=== PATIENT | male | born 1965 | race Two or more races ===

== ENCOUNTER 2019-05-28 19:42 | Emergency (ER) | payer MEDICAID ==
[~2019-05-28] VITALS: Ht 170.2 cm; Wt 92.7 kg
[~2019-05-28 19:42] MED LIST: ALBU18HF INH; ALBU8.5H5 INH; CEFD300C37 PO; DOXY50CA4 PO; LEVO750T26 PO; PANT40TA3 PO; PRED20TA PO; WARF5TAB PO
[2019-05-28] MEDS ORDERED: ALBUTEROL/IPRATROPIUM 2.5MG/0.5MG, 3 ML ONE (20:19)
[2019-05-28] MEDS ORDERED: ALBUTEROL/IPRATROPIUM 2.5MG/0.5MG, 3 ML NPPB ONE (20:30)
--- NOTE | 2019-05-28 20:35 | NUR ---
Pt to room c/o cough and wheezing for a few days. Pt medicated per eMAR and breathing tx started by rn.
[2019-05-28 20:54] LABS: BASOPHILS # (AUTO) 0.06 x10^3/uL (0-0.1); BASOPHILS % (AUTO) 1 % (0-1); EOSINOPHILS # (AUTO) 0.51 x10^3/uL (0-0.4); EOSINOPHILS % (AUTO) 7 % (1-7); LYMPHOCYTES # (AUTO) 2.19 x10^3/uL (1-3.4); LYMPHOCYTES % (AUTO) 31 % (22-44); MD NO; MEAN CORPUSCULAR HEMOGLOBIN 30.1 pg (27.5-34.5); MEAN CORPUSCULAR VOLUME 91.2 fL (81-97); MEAN PLATELET VOLUME 8.1 fL (7.4-10.4); MONOCYTES # (AUTO) 0.53 x10^3/uL (0.2-0.8); MONOCYTES % (AUTO) 8 % (2-9); NEUTROPHILS % (AUTO) 53 % (42-75); PLATELET COUNT 261 x10^3/uL (130-400); RED BLOOD COUNT 5.74 x10^6/uL (4.38-5.82); RED CELL DISTRIBUTION WIDTH 15.7 % (9.4-14.8)
[2019-05-28 21:04] LABS: ALBUMIN 3.8 g/dL (3.4-5.0); ANION GAP 5 mmol/L (5-15); CALCIUM 9.3 mg/dL (8.5-10.1); CHLORIDE 107 mmol/L (98-107); CREATININE 0.93 mg/dL (0.7-1.3)
[2019-05-28 21:08] VITALS: BP 158/83
== END 2019-05-28 21:33 | disposition home or self-care (01) ==
LOC: ED 21:05
DX: J45.21 Mild intermittent asthma with (acute) exacerbation (principal); J20.8 Acute bronchitis due to other specified organisms; B97.89 Other viral agents as the cause of diseases classified elsewhere; R07.89 Other chest pain; Z86.718 Personal history of other venous thrombosis and embolism
CPT/HCPCS: 36415; 71045; 80048; 82040; 85025; 93005; 99285; J7512

== ENCOUNTER 2019-07-10 15:45 | Emergency (ER) | payer MEDICAID ==
[~2019-07-10] VITALS: Ht 170.2 cm; Wt 92.8 kg
--- NOTE | 2019-07-10 16:14 | NUR ---
THIS IS A 54 YO MALE WHO PRESENTS TO THE ER C/O SHARP RIGHT SIDED CHEST PAIN X 1 MONTH, WORSE OVER THE LAST WEEK. PT ABLE TO SPEAK IN FULL 7-10 WORD SENTENCES W/O DIFFICULTY. PT AO X 4. SKIN PWD. RESP EVEN AND UNLABORED. CALL LIGHT WITHIN REACH. WILL CONT TO MONITOR PT.
[2019-07-10 17:14] LABS: BASOPHILS # (AUTO) 0.01 x10^3/uL (0-0.1); BASOPHILS % (AUTO) 0 % (0-1); EOSINOPHILS % (AUTO) 4 % (1-7); LYMPHOCYTES # (AUTO) 1.67 x10^3/uL (1-3.4); LYMPHOCYTES % (AUTO) 22 % (22-44); MD NO; MEAN CORPUSCULAR HEMOGLOBIN 30.3 pg (27.5-34.5); MEAN CORPUSCULAR HGB CONC 32.9 g/dL (33.2-36.2); MEAN PLATELET VOLUME 8.3 fL (7.4-10.4); MONOCYTES # (AUTO) 0.54 x10^3/uL (0.2-0.8); MONOCYTES % (AUTO) 7 % (2-9); NEUTROPHILS # (AUTO) 5.01 x10^3/uL (1.8-6.8); NEUTROPHILS % (AUTO) 67 % (42-75); PLATELET COUNT 252 x10^3/uL (130-400); RED BLOOD COUNT 5.09 x10^6/uL (4.38-5.82)
[2019-07-10 17:22] LABS: ALBUMIN 3.5 g/dL (3.4-5.0); ANION GAP 5 mmol/L (5-15); CALCIUM 8.7 mg/dL (8.5-10.1); CHLORIDE 106 mmol/L (98-107); CREATININE 1.12 mg/dL (0.7-1.3)
[2019-07-10 17:25] LABS: TROPONIN I < 0.015 ng/mL (0.000-0.045)
--- NOTE | 2019-07-10 17:30 | NUR ---
PT CURRENTLY RESTING ON GURNEY. NAD NOTED. SKIN WARM AND DRY. RESP EVEN AND UNLABORED. PT ABLE TO SPEAK IN FULL 7-10 WORD SENTENCES W/O DIFFICULTY. NO COUGH NOTED. PT CURRENTLY DENIES PAIN. PT ON CONT BP, CARDIAC AND O2 MONITORS. PT AWARE WE ARE WAITING FOR LAB/IMAGING RESULTS. CALL LIGHT WITHIN REACH. WILL CONT TO MONITOR PT.
[2019-07-10 17:57] VITALS: BP 166/95
[2019-07-10] MEDS ORDERED: SODIUM CHLORIDE FLUSH 10ML SYR IVF ONE (18:00)
== END 2019-07-10 18:09 | disposition home or self-care (01) ==
LOC: ED 17:54
DX: M94.0 Chondrocostal junction syndrome [Tietze] (principal); R07.89 Other chest pain; R05 Cough; I10 Essential (primary) hypertension; R94.31 Abnormal electrocardiogram [ECG] [EKG]; J45.909 Unspecified asthma, uncomplicated; Z86.718 Personal history of other venous thrombosis and embolism
CPT/HCPCS: 36415; 71045; 80048; 82040; 83605; 84484; 85025; 87040; 93005; 99285

== ENCOUNTER 2019-07-19 15:18 | Emergency (ER) | payer MEDICAID ==
[~2019-07-19] VITALS: Ht 170.2 cm; Wt 91.2 kg
[~2019-07-19 15:18] MED LIST changes: -WARF5TAB PO; +WARF5TAB2 PO
--- NOTE | 2019-07-19 16:06 | NUR ---
PAN SHOVER: PT AMBULATORY WITH STEADY GAIT TO ROOM FROM LOBBY AT THIS TIME.
--- NOTE | 2019-07-19 16:15 | NUR ---
PT C/O RT BACK PAIN RADIATING TO RT LOWER RIB; WORSE IN LAST 3 DAYS. ABLE TO SPEAK IN COMPLETE SENTENCES. INSP WHEEZES NOTED. ADMITS TO METH USE, PAIN WORSENS W/ METH USE. NO RASH NOTED ON TORSO. MULTIPLE SCARS AND SCABBED AREAS TO ARMS BILAT.
[2019-07-19] MEDS ORDERED: OMEP40CA42 PO (16:24)
[2019-07-19] MEDS ORDERED: CYCLOBENZAPRINE 10 MG TABLET PO ONE (17:17)
[2019-07-19 17:20] LABS: BASOPHILS # (AUTO) 0.06 x10^3/uL (0-0.1); BASOPHILS % (AUTO) 1 % (0-1); EOSINOPHILS # (AUTO) 0.49 x10^3/uL (0-0.4); EOSINOPHILS % (AUTO) 7 % (1-7); LYMPHOCYTES # (AUTO) 1.72 x10^3/uL (1-3.4); LYMPHOCYTES % (AUTO) 23 % (22-44); MD NO; MEAN CORPUSCULAR HEMOGLOBIN 30.4 pg (27.5-34.5); MEAN CORPUSCULAR HGB CONC 33.4 g/dL (33.2-36.2); MEAN PLATELET VOLUME 8.4 fL (7.4-10.4); MONOCYTES % (AUTO) 9 % (2-9); NEUTROPHILS # (AUTO) 4.59 x10^3/uL (1.8-6.8); NEUTROPHILS % (AUTO) 61 % (42-75); PLATELET COUNT 237 x10^3/uL (130-400); RED BLOOD COUNT 5.29 x10^6/uL (4.38-5.82); RED CELL DISTRIBUTION WIDTH 16.3 % (9.4-14.8)
[2019-07-19 17:29] LABS: ALBUMIN 3.5 g/dL (3.4-5.0); ANION GAP 7 mmol/L (5-15); CALCIUM 8.9 mg/dL (8.5-10.1); CHLORIDE 109 mmol/L (98-107)
[2019-07-19 17:32] LABS: ALANINE AMINOTRANSFERASE 23 U/L (12-78); ALKALINE PHOSPHATASE 73 U/L (45-117); BILIRUBIN,TOTAL 0.4 mg/dL (0.2-1.0); CREATININE 1.05 mg/dL (0.7-1.3); TOTAL PROTEIN 7.7 g/dL (6.4-8.2)
[2019-07-19] MEDS ORDERED: CYCLOBENZAPRINE 10 MG TABLET ONE (17:51)
--- NOTE | 2019-07-19 17:55 | NUR ---
FLEXERIL GIVEN PER EMAR
--- NOTE | 2019-07-19 18:14 | NUR ---
IV ASSISTANCE REQUESTED FOR U/S OR EJ IV.
[2019-07-19] MEDS ORDERED: OMNIPAQUE 350 MG/ML, 100ML BOTTLE ONE (19:05)
--- NOTE | 2019-07-19 19:06 | NUR ---
PT REPORT TO MICHEL COLLADO. PT CARE TRANSFERRED.
[2019-07-19 19:14] VITALS: BP 122/73
== END 2019-07-19 19:51 ==
LOC: ED 19:50
DX: R07.89 Other chest pain (principal); F15.20 Other stimulant dependence, uncomplicated; R10.11 Right upper quadrant pain; R00.0 Tachycardia, unspecified; R06.02 Shortness of breath; I10 Essential (primary) hypertension; J45.909 Unspecified asthma, uncomplicated
CPT/HCPCS: 36415; 71045; 71275; 80053; 83690; 85025; 85379; 93005; 99285; Q9967

== ENCOUNTER 2020-01-22 16:25 | Emergency (ER) | payer MEDICAID ==
[~2020-01-22] VITALS: Ht 170.2 cm; Wt 89.1 kg
[~2020-01-22 16:25] MED LIST changes: +OMEP40CA42 PO
[2020-01-22 16:32] VITALS: BP 139/88
== END 2020-01-22 17:41 | disposition home or self-care (01) ==
LOC: ED 16:56
DX: R05 Cough (principal); R50.9 Fever, unspecified; I10 Essential (primary) hypertension; J45.909 Unspecified asthma, uncomplicated; Z86.718 Personal history of other venous thrombosis and embolism
CPT/HCPCS: 71045; 93005; 99283

== ENCOUNTER 2020-03-15 17:32 | Emergency (ER) | payer MEDICAID ==
[~2020-03-15] VITALS: Ht 170.2 cm; Wt 90.7 kg
[2020-03-15] MEDS ORDERED: ALBUTEROL/IPRATROPIUM 2.5MG/0.5MG, 3 ML ONE (18:20)
--- NOTE | 2020-03-15 18:23 | NUR ---
PT STATES COUGH FOR A MONTH AND FEELS WHEEZY. BREATHING TX GIVEN AND MEDICATED NOTED ON APR. LAB AT BEDSIDE DRAWING BLOOD
[2020-03-15] MEDS ORDERED: ALBUTEROL/IPRATROPIUM 2.5MG/0.5MG, 3 ML NEB ONE (18:30)
--- NOTE | 2020-03-15 19:04 | NUR ---
REPORT RECEIVED FROM ULISES PEARSON
[2020-03-15 19:14] LABS: ANION GAP 5 mmol/L (5-15); CALCIUM 8.9 mg/dL (8.5-10.1); CHLORIDE 109 mmol/L (98-107); CREATININE 1.06 mg/dL (0.7-1.3)
[2020-03-15 19:18] LABS: TROPONIN I < 0.015 ng/mL (0.000-0.045)
[2020-03-15 19:22] LABS: BASOPHILS % (AUTO) 1 % (0-1); EOSINOPHILS % (AUTO) 9 % (1-7); LYMPHOCYTES % (AUTO) 28 % (22-44); MEAN CORPUSCULAR HEMOGLOBIN 31.5 pg (27.5-34.5); MEAN CORPUSCULAR HGB CONC 34.1 g/dL (33.2-36.2); MEAN PLATELET VOLUME 8.2 fL (7.4-10.4); MONOCYTES % (AUTO) 9 % (2-9); NEUTROPHILS % (AUTO) 53 % (42-75); PLATELET COUNT 231 x10^3/uL (130-400); RED BLOOD COUNT 5.48 x10^6/uL (4.38-5.82); RED CELL DISTRIBUTION WIDTH 15.3 % (9.4-14.8)
[2020-03-15 19:23] VITALS: BP 152/96
[2020-03-15 19:23] LABS: MD NO
== END 2020-03-15 20:28 | disposition home or self-care (01) ==
LOC: ED 20:25
DX: J45.41 Moderate persistent asthma with (acute) exacerbation (principal); F15.10 Other stimulant abuse, uncomplicated; R05 Cough; R06.02 Shortness of breath; M54.5 Low back pain; R00.0 Tachycardia, unspecified; I10 Essential (primary) hypertension; Z86.718 Personal history of other venous thrombosis and embolism
CPT/HCPCS: 36415; 71045; 80048; 82040; 84484; 85025; 93005; 94640; 99285; J7512

== ENCOUNTER 2020-04-17 20:06 | Emergency (ER) | payer MEDICAID ==
[~2020-04-17] VITALS: Ht 170.2 cm; Wt 87.5 kg
[2020-04-17 20:10] VITALS: BP 167/90
--- NOTE | 2020-04-17 21:10 | NUR ---
PT C/O BRONCHITIS [id number]. STATES HE FEELS LIKE IT IS GETTING WORSE, COUGHING UP WHITE PHLEGM. PAIN IN LEFT BACK WITH COUGHING AND DEEP BREATHING MILD WOB NOTED; HOWEVER- POX 97% DENIES FEVER/CHILLS, N/V
[2020-04-17] MEDS ORDERED: ALBUTEROL SULFATE 2.5 MG/3 ML NPPB ONE (21:30)
[2020-04-17] MEDS ORDERED: ALBUTEROL SULFATE 2.5 MG/3 ML ONE (21:48)
[2020-04-17 21:52] LABS: BASOPHILS % (AUTO) 2 % (0-1); EOSINOPHILS % (AUTO) 7 % (1-7); LYMPHOCYTES % (AUTO) 27 % (22-44); MEAN CORPUSCULAR HEMOGLOBIN 31.6 pg (27.5-34.5); MEAN CORPUSCULAR HGB CONC 34.4 g/dL (33.2-36.2); MEAN PLATELET VOLUME 7.8 fL (7.4-10.4); MONOCYTES % (AUTO) 10 % (2-9); NEUTROPHILS % (AUTO) 55 % (42-75); PLATELET COUNT 258 x10^3/uL (130-400); RED CELL DISTRIBUTION WIDTH 15.7 % (9.4-14.8)
[2020-04-17 21:54] LABS: MD NO
--- NOTE | 2020-04-17 22:02 | NUR ---
REPORT TO CAROLINE PEARSON [facility] COMPLETE
--- NOTE | 2020-04-17 22:04 | NUR ---
Report received from MICHEL Gates. This RN to assume care.
[2020-04-17 22:05] LABS: ALBUMIN 3.7 g/dL (3.4-5.0); ANION GAP 7 mmol/L (5-15); CALCIUM 8.8 mg/dL (8.5-10.1); CHLORIDE 108 mmol/L (98-107)
[2020-04-17 22:10] LABS: CREATININE 0.86 mg/dL (0.7-1.3); TROPONIN I < 0.015 ng/mL (0.000-0.045)
--- NOTE | 2020-04-17 22:43 | NUR ---
f/u and d/c instructions given to pt and he v/u. no respiratory distress at this time. pt ambulatory and d/c without incident.
== END 2020-04-17 22:59 | disposition home or self-care (01) ==
LOC: ED 22:10
DX: J44.1 Chronic obstructive pulmonary disease with (acute) exacerbation (principal); R06.00 Dyspnea, unspecified; I10 Essential (primary) hypertension; R05 Cough; R94.31 Abnormal electrocardiogram [ECG] [EKG]; R06.02 Shortness of breath; F15.10 Other stimulant abuse, uncomplicated; Z87.891 Personal history of nicotine dependence; Z86.718 Personal history of other venous thrombosis and embolism
CPT/HCPCS: 36415; 71045; 80048; 82040; 84484; 85025; 93005; 94640; 99285; J7512; J7613

== ENCOUNTER 2020-07-14 15:48 | Emergency (ER) | payer MEDICAID ==
[~2020-07-14] VITALS: Ht 170.2 cm; Wt 89.3 kg
--- NOTE | 2020-07-14 16:12 | NUR ---
CC OF WHEEZING AND COUGH. STATES HE FINISHED ANTIBIOTICS AND WAS FEELING BETTER BUT NOW FEELING WORSE AGAIN.
[2020-07-14] MEDS ORDERED: DEXAMETHASONE 4 MG TABLET ONE (16:29)
[2020-07-14] MEDS ORDERED: DEXAMETHASONE 4 MG/ML, 1ML PO ONE (16:30)
[2020-07-14] MEDS ORDERED: ALBUTEROL/IPRATROPIUM 2.5MG/0.5MG, 3 ML ONE (16:30)
[2020-07-14] MEDS ORDERED: ALBUTEROL/IPRATROPIUM 2.5MG/0.5MG, 3 ML NPPB ONE (16:30)
--- NOTE | 2020-07-14 16:42 | NUR ---
pt medicated per apr. TOLERATING BREATHING TX WELL
[2020-07-14 16:58] VITALS: BP 167/93
== END 2020-07-14 17:09 | disposition home or self-care (01) ==
LOC: ED 17:00
DX: J45.31 Mild persistent asthma with (acute) exacerbation (principal); B34.9 Viral infection, unspecified; F15.122 Other stimulant abuse with intoxication with perceptual disturbance; F17.210 Nicotine dependence, cigarettes, uncomplicated; I10 Essential (primary) hypertension; J44.9 Chronic obstructive pulmonary disease, unspecified; Z86.718 Personal history of other venous thrombosis and embolism
CPT/HCPCS: 71045; 94640; 99283; 99406; J1100

== ENCOUNTER 2020-09-09 18:58 | Emergency (ER) | payer MEDICAID ==
[~2020-09-09] VITALS: Ht 170.2 cm; Wt 89.4 kg
[~2020-09-09 18:58] MED LIST changes: +DOXY50CA35 PO; -DOXY50CA4 PO; -OMEP40CA42 PO; +OMEP40CA8 PO
--- NOTE | 2020-09-09 19:26 | NUR ---
plant accountant note: Pt to room from lobby.
[2020-09-09] MEDS ORDERED: ALBUTEROL/IPRATROPIUM 2.5MG/0.5MG, 3 ML NPPB ONE (20:00)
[2020-09-09] MEDS ORDERED: ALBUTEROL/IPRATROPIUM 2.5MG/0.5MG, 3 ML ONE (20:24)
--- NOTE | 2020-09-09 20:29 | NUR ---
PT MEDICATED PER APR, NAD, NO CHANGE IN CONDITION AT THIS TIME, WCTM. Patient is resting comfortably in bed. Bed in lowest, rails engaged, call light on lap.
[2020-09-09 21:15] LABS: BASOPHILS % (AUTO) 2 % (0-1); EOSINOPHILS % (AUTO) 9 % (1-7); LYMPHOCYTES % (AUTO) 37 % (22-44); MEAN CORPUSCULAR HEMOGLOBIN 31.7 pg (27.5-34.5); MEAN CORPUSCULAR HGB CONC 33.8 g/dL (33.2-36.2); MEAN PLATELET VOLUME 7.9 fL (7.4-10.4); MONOCYTES % (AUTO) 8 % (2-9); NEUTROPHILS % (AUTO) 45 % (42-75); PLATELET COUNT 256 x10^3/uL (130-400); RED BLOOD COUNT 5.53 x10^6/uL (4.38-5.82)
[2020-09-09 21:23] LABS: ALBUMIN 3.7 g/dL (3.4-5.0); ANION GAP 4 mmol/L (5-15); CALCIUM 8.5 mg/dL (8.5-10.1); CHLORIDE 109 mmol/L (98-107)
--- NOTE | 2020-09-09 21:41 | NUR ---
PT RESTING ON GURNEY, NAD, APPEARS COMFORTABLE, NO CHANGE IN CONDITION AT THIS TIME. BED IN LOWEST, RAILS ENGAGED, CALL LIGHT ON LAP, DHIRAJ.
[2020-09-09 22:15] VITALS: BP 174/98
== END 2020-09-09 23:02 | disposition home or self-care (01) ==
LOC: ED 21:25
DX: J44.1 Chronic obstructive pulmonary disease with (acute) exacerbation (principal); R06.00 Dyspnea, unspecified; I10 Essential (primary) hypertension; Z86.718 Personal history of other venous thrombosis and embolism
CPT/HCPCS: 36415; 71045; 80048; 82040; 84145; 85025; 94640; 99284; J7512

== ENCOUNTER 2020-11-02 20:46 | Inpatient (IN) | payer MEDICAID ==
[~2020-11-02] VITALS: Ht 170.2 cm; Wt 90.6 kg
[2020-11-02] MEDS ORDERED: ACETAMINOPHEN 500 MG TABLET ONE (21:27)
[2020-11-02] MEDS ORDERED: ALBUTEROL/IPRATROPIUM 2.5MG/0.5MG, 3 ML ONE (21:28)
[2020-11-02 21:30] VITALS: BP 117/67
[2020-11-02] MEDS ORDERED: ALBUTEROL/IPRATROPIUM 2.5MG/0.5MG, 3 ML NPPB ONE (21:30)
[2020-11-02] MEDS ORDERED: ACETAMINOPHEN 500 MG TABLET PO ONE (21:30)
[2020-11-02 21:57] LABS: BASOPHILS % (AUTO) 0 % (0-1); EOSINOPHILS % (AUTO) 0 % (1-7); LYMPHOCYTES % (AUTO) 13 % (22-44); MEAN CORPUSCULAR HEMOGLOBIN 31.1 pg (27.5-34.5); MEAN CORPUSCULAR HGB CONC 33.9 g/dL (33.2-36.2); MEAN PLATELET VOLUME 8.3 fL (7.4-10.4); MONOCYTES % (AUTO) 13 % (2-9); NEUTROPHILS % (AUTO) 74 % (42-75); PLATELET COUNT 180 x10^3/uL (130-400)
[2020-11-02 22:01] LABS: ALBUMIN 2.9 g/dL (3.4-5.0); ANION GAP 9 mmol/L (5-15); CALCIUM 7.5 mg/dL (8.5-10.1); CHLORIDE 99 mmol/L (98-107); CREATININE 0.94 mg/dL (0.7-1.3)
[2020-11-02] MEDS ORDERED: AZITHROMYCIN 500 MG in SODIUM CHLORIDE 0.9% 250 ML IV ONE (22:30)
[2020-11-02 22:38] LABS: RAPID INFLUENZA A Negative (Negative); RAPID INFLUENZA B Negative (Negative)
[2020-11-03 01:09] VITALS: BP 120/72
[2020-11-03] MEDS ORDERED: LABETALOL 5MG/ML, 20ML IVPush PRN (03:30)
[2020-11-03] MEDS ORDERED: ONDANSETRON 2MG/ML, 2ML IVPush PRN (03:30)
[2020-11-03] MEDS ORDERED: PHARMACY MAY ADJ FOR RENAL FX MC PRN (03:30)
[2020-11-03] MEDS ORDERED: HYDROcodone/APAP 5/325 TABLET PO PRN (03:30)
[2020-11-03] MEDS ORDERED: ACETAMINOPHEN 325 MG TABLET PO PRN (03:30)
[2020-11-03] MEDS: CEFTRIAXONE 1,000 MG in DEXTROSE 5% 50 ML IVPB SCH (04:04)
[2020-11-03] MEDS: ENOXAPARIN 80 MG/0.8 ML SQ SCH ×2 (04:04→17:23)
[2020-11-03 04:13] VITALS: BP 117/67
[2020-11-03 07:24] LABS: BASOPHILS % (AUTO) 0 % (0-1); EOSINOPHILS % (AUTO) 0 % (1-7); LYMPHOCYTES % (AUTO) 11 % (22-44); MEAN CORPUSCULAR HEMOGLOBIN 31.1 pg (27.5-34.5); MEAN CORPUSCULAR HGB CONC 33.6 g/dL (33.2-36.2); MEAN PLATELET VOLUME 8.6 fL (7.4-10.4); MONOCYTES % (AUTO) 6 % (2-9); NEUTROPHILS % (AUTO) 84 % (42-75); PLATELET COUNT 174 x10^3/uL (130-400); RED BLOOD COUNT 5.58 x10^6/uL (4.38-5.82); RED CELL DISTRIBUTION WIDTH 16.3 % (9.4-14.8)
[2020-11-03 07:31] LABS: D-DIMER 1.39 ug/mlFEU (0.00-0.52)
[2020-11-03 07:33] VITALS: BP 122/75
[2020-11-03 07:36] LABS: C-REACTIVE PROTEIN, QUANT 1.9 mg/dL (0.02-0.49)
[2020-11-03 07:56] LABS: HCT (SEDRATE) 51.6 % (39.2-51.8)
[2020-11-03] MEDS: ALBUTEROL HFA 90 MCG/SPRAY INH PRN (10:50)
[2020-11-03] MEDS: ASCORBIC ACID 500 MG TABLET PO SCH ×2 (10:51→21:07)
[2020-11-03] MEDS: ZINC SULFATE 220 MG CAPSULE PO SCH (10:51)
[2020-11-03] MEDS: FLUTICASONE/VILANTEROL 100-25MCG/INH INH SCH (10:51)
[2020-11-03] MEDS: GUAIFENESIN/DM 200-20MG, 10ML UDC PO PRN (11:06)
[2020-11-03 14:27] VITALS: BP 133/77
[2020-11-03 20:18] VITALS: BP 137/65
[2020-11-03] MEDS: AZITHROMYCIN 500 MG in SODIUM CHLORIDE 0.9% 250 ML IV SCH (23:29)
[2020-11-04] MEDS: ALBUTEROL HFA 90 MCG/SPRAY INH PRN ×2 (01:16→10:33)
[2020-11-04 01:23] VITALS: BP 117/75
[2020-11-04] MEDS: ENOXAPARIN 80 MG/0.8 ML SQ SCH ×2 (04:34→17:55)
[2020-11-04] MEDS: CEFTRIAXONE 1,000 MG in DEXTROSE 5% 50 ML IVPB SCH (04:34)
[2020-11-04 06:15] LABS: HCT (SEDRATE) 50.8 % (39.2-51.8)
[2020-11-04 06:31] LABS: CHLORIDE 101 mmol/L (98-107)
[2020-11-04 06:48] LABS: ALANINE AMINOTRANSFERASE 42 U/L (12-78); ALBUMIN 2.5 g/dL (3.4-5.0); ALKALINE PHOSPHATASE 56 U/L (45-117); ANION GAP 5 mmol/L (5-15); BILIRUBIN,TOTAL 0.3 mg/dL (0.2-1.0); CALCIUM 7.7 mg/dL (8.5-10.1); CREATININE 0.86 mg/dL (0.7-1.3); TOTAL PROTEIN 6.8 g/dL (6.4-8.2)
[2020-11-04 07:51] VITALS: BP 120/70
[2020-11-04] MEDS: FLUTICASONE/VILANTEROL 100-25MCG/INH INH SCH (10:35)
[2020-11-04] MEDS: ASCORBIC ACID 500 MG TABLET PO SCH ×2 (10:37→20:13)
[2020-11-04] MEDS: ZINC SULFATE 220 MG CAPSULE PO SCH (10:37)
[2020-11-04] MEDS: GUAIFENESIN/DM 200-20MG, 10ML UDC PO PRN ×2 (10:37→17:55)
[2020-11-04] MEDS: methylPREDNISolone SOD SUCC 125 MG/2 ML IV SCH ×2 (10:37→21:59)
[2020-11-04 12:32] VITALS: BP 126/71
[2020-11-04] MEDS: CHOLECALCIFEROL 5,000u TAB PO SCH (17:55)
[2020-11-04 19:42] VITALS: BP 121/74
[2020-11-04] MEDS: AZITHROMYCIN 500 MG in SODIUM CHLORIDE 0.9% 250 ML IV SCH (23:35)
[2020-11-05 01:06] VITALS: BP 116/74
[2020-11-05] MEDS: methylPREDNISolone SOD SUCC 125 MG/2 ML IV SCH ×3 (04:21→16:10)
[2020-11-05] MEDS: ENOXAPARIN 80 MG/0.8 ML SQ SCH ×2 (04:22→16:11)
[2020-11-05] MEDS: CEFTRIAXONE 1,000 MG in DEXTROSE 5% 50 ML IVPB SCH (04:22)
[2020-11-05] MEDS ORDERED: FAMOTIDINE 20 MG TABLET PO SCH (05:04)
[2020-11-05 08:14] VITALS: BP 134/74
[2020-11-05] MEDS: ASCORBIC ACID 500 MG TABLET PO SCH (08:46)
[2020-11-05] MEDS: FLUTICASONE/VILANTEROL 100-25MCG/INH INH SCH (08:46)
[2020-11-05] MEDS: ZINC SULFATE 220 MG CAPSULE PO SCH (08:47)
[2020-11-05] MEDS: CHOLECALCIFEROL 5,000u TAB PO SCH (08:47)
[2020-11-05 09:10] LABS: BASOPHILS % (AUTO) 0 % (0-1); EOSINOPHILS % (AUTO) 0 % (1-7); LYMPHOCYTES % (AUTO) 6 % (22-44); MEAN CORPUSCULAR HEMOGLOBIN 30.9 pg (27.5-34.5); MEAN CORPUSCULAR HGB CONC 33.2 g/dL (33.2-36.2); MONOCYTES % (AUTO) 4 % (2-9); NEUTROPHILS % (AUTO) 90 % (42-75); PLATELET COUNT 150 x10^3/uL (130-400); RED BLOOD COUNT 5.81 x10^6/uL (4.38-5.82); RED CELL DISTRIBUTION WIDTH 15.9 % (9.4-14.8)
[2020-11-05 09:21] LABS: ALBUMIN 2.7 g/dL (3.4-5.0); ANION GAP 7 mmol/L (5-15); CALCIUM 8.2 mg/dL (8.5-10.1); CHLORIDE 104 mmol/L (98-107)
[2020-11-05 09:27] LABS: D-DIMER 2.19 ug/mlFEU (0.00-0.52)
[2020-11-05 09:28] LABS: CREATININE 0.76 mg/dL (0.7-1.3)
[2020-11-05] MEDS ORDERED: FLUT1AER INH (11:28)
[2020-11-05] MEDS ORDERED: CEFD300C37 PO (11:28)
[2020-11-05] MEDS ORDERED: DEXA6TAB6 PO (11:28)
[2020-11-05] MEDS ORDERED: ZINC220C8 PO (11:28)
[2020-11-05] MEDS ORDERED: AZIT500T PO (11:28)
[2020-11-05] MEDS ORDERED: ASCO500T9 PO (11:28)
[2020-11-05 11:34] VITALS: BP 122/78
[2020-11-05 12:20] VITALS: BP 122/78
== END 2020-11-05 20:00 | disposition home or self-care (01) | DRG 177 ==
LOC: ED 21:00 → EDIP 22:20 → 3N 23:29
PROVIDERS: ADMIT Internal Medicine; ATTEND Internal Medicine
DX: U07.1 COVID-19 (principal); J12.82 Pneumonia due to coronavirus disease 2019; J96.01 Acute respiratory failure with hypoxia; J45.901 Unspecified asthma with (acute) exacerbation; J44.0 Chronic obstructive pulmonary disease with (acute) lower respiratory infection; F15.90 Other stimulant use, unspecified, uncomplicated; I10 Essential (primary) hypertension; Z86.711 Personal history of pulmonary embolism; Z79.899 Other long term (current) drug therapy
CPT/HCPCS: 36415; 71045; 71250; 80048; 80053; 80069; 82040; 82728; 83036; 83735; 84100; 84145; 85025; 85379; 85384; 85651; 85730; 86140; 87040; 87400; 93005; 99285; G0378; J0456; J0696; J1650; J2405; U0005; J2930; J7050; J7512; U0003

== ENCOUNTER 2020-11-21 15:34 | Emergency (ER) | payer MEDICAID ==
[~2020-11-21] VITALS: Ht 170.2 cm; Wt 91.9 kg
[~2020-11-21 15:34] MED LIST changes: +ASCO500T9 PO; +AZIT500T PO; +DEXA6TAB6 PO; +FLUT1AER INH; +ZINC220C8 PO
[2020-11-21 16:36] LABS: BASOPHILS % (AUTO) 1 % (0-1); EOSINOPHILS % (AUTO) 1 % (1-7); LYMPHOCYTES % (AUTO) 16 % (22-44); MEAN CORPUSCULAR HEMOGLOBIN 31.1 pg (27.5-34.5); MEAN CORPUSCULAR HGB CONC 33.8 g/dL (33.2-36.2); MEAN PLATELET VOLUME 7.7 fL (7.4-10.4); MONOCYTES % (AUTO) 11 % (2-9); NEUTROPHILS % (AUTO) 71 % (42-75); PLATELET COUNT 269 x10^3/uL (130-400); RED BLOOD COUNT 5.43 x10^6/uL (4.38-5.82); RED CELL DISTRIBUTION WIDTH 17.2 % (9.4-14.8)
[2020-11-21 16:39] LABS: ALANINE AMINOTRANSFERASE 74 U/L (12-78); ALBUMIN 2.6 g/dL (3.4-5.0); ANION GAP 7 mmol/L (5-15); C-REACTIVE PROTEIN, QUANT 0.93 mg/dL (0.02-0.49); CALCIUM 8.3 mg/dL (8.5-10.1); CHLORIDE 107 mmol/L (98-107); CREATININE 0.85 mg/dL (0.7-1.3)
[2020-11-21 16:43] LABS: D-DIMER (DIC) 2.23 ug/mlFEU (0.00-0.52); PROTIME 9.9 Seconds (9.6-11.5)
[2020-11-21 16:44] LABS: ALKALINE PHOSPHATASE 70 U/L (45-117); BILIRUBIN,TOTAL 0.4 mg/dL (0.2-1.0); TOTAL PROTEIN 6.8 g/dL (6.4-8.2); TROPONIN I < 0.015 ng/mL (0.000-0.045)
--- NOTE | 2020-11-21 20:34 | NUR ---
RAMANA RN AT BEDSIDE FOR US IV ACCESS
--- NOTE | 2020-11-21 21:29 | NUR ---
UPRIGHT IN GURNEY. A&O X4, AWAKE/ALERT. DENIES NEEDS. PT UPDATED TO POC (CT IMAGING/RECHECK/DISPO) AND DEMONSTRATES UNDERSTANDING. BP/SPO2/ECG MONITORING IN PLACE. SINUS TACH ON MONITOR. SPO2 >90% ON 2L O2 BY NC.
[2020-11-21] MEDS ORDERED: OMNIPAQUE 350 MG/ML, 75ML BOTTLE ONE (21:50)
[2020-11-21] MEDS ORDERED: RIVAROXABAN 15 MG TABLET PO SCH (23:30)
[2020-11-21 23:32] VITALS: BP 127/76
--- NOTE | 2020-11-22 | NUR ---
DC EDUCATION PROVIDED, PT DEMONSTRATES UNDERSTANDING. PT PROVIDED VOUCHER FOR SAFE TRANSPORT. PT HAS O2 AT HOME FOR SUPPORT. PROVIDED XARELTO COUPON FOR ASSISTANCE IN OBTAINING RX
[2020-12-12] MEDS ORDERED: RIVAROXABAN 20 MG TABLET PO SCH (17:00)
== END 2020-11-22 00:41 | disposition home or self-care (01) ==
LOC: ED 16:00
DX: I26.99 Other pulmonary embolism without acute cor pulmonale (principal); R07.89 Other chest pain; R00.0 Tachycardia, unspecified; R53.1 Weakness; I10 Essential (primary) hypertension
CPT/HCPCS: 36415; 71045; 71275; 80053; 82728; 83605; 83615; 84145; 84484; 85025; 85049; 85379; 85384; 85610; 85730; 86140; 87040; 93005; 93970; 99285; Q9967

== ENCOUNTER 2020-11-24 14:41 | Emergency (ER) | payer MEDICAID ==
[~2020-11-24] VITALS: Ht 170.2 cm; Wt 91.4 kg
[2020-11-24 16:19] LABS: BASOPHILS % (AUTO) 1 % (0-1); EOSINOPHILS % (AUTO) 2 % (1-7); LYMPHOCYTES % (AUTO) 22 % (22-44); MEAN CORPUSCULAR HGB CONC 33.6 g/dL (33.2-36.2); MEAN PLATELET VOLUME 7.5 fL (7.4-10.4); MONOCYTES % (AUTO) 10 % (2-9); NEUTROPHILS % (AUTO) 65 % (42-75); PLATELET COUNT 222 x10^3/uL (130-400); RED BLOOD COUNT 5.08 x10^6/uL (4.38-5.82)
[2020-11-24 16:27] LABS: ALANINE AMINOTRANSFERASE 49 U/L (12-78); ALBUMIN 2.9 g/dL (3.4-5.0); ANION GAP 3 mmol/L (5-15); CALCIUM 8.1 mg/dL (8.5-10.1); CHLORIDE 112 mmol/L (98-107)
[2020-11-24 16:29] LABS: ALKALINE PHOSPHATASE 72 U/L (45-117); BILIRUBIN,TOTAL 0.3 mg/dL (0.2-1.0); CREATININE 0.73 mg/dL (0.7-1.3); TOTAL PROTEIN 7.2 g/dL (6.4-8.2)
--- NOTE | 2020-11-24 18:51 | NUR ---
PT TO ROOM FROM LOBBY
--- NOTE | 2020-11-24 19:01 | NUR ---
PT IN NO DISTRESS. SAYS HE COVID POSITIVE X3 WEEKS AGO. WAS TOLD HE HAD BLOOD CLOT IN LUNG AND HAS BEEN ON XARELTO SINCE BEING DIAGNOSED. SAYS HE HAS BLOWING HIS NOSE AND HAVING BLOOD IN HIS SECRETIONS/PLEGHM. ALSO C/O PAIN WHEN TAKING A DEEP BREATH. A&OX4, GCS 15
[2020-11-24 19:03] VITALS: BP 141/86
--- NOTE | 2020-11-24 19:50 | NUR ---
Patient/Caregiver given discharge instructions and they have confirmed that they understand the instructions. Patient ambulatory with steady gait. NAD, all questions answered appropriately, denies additional needs at this time. No personal belongings left in room after discharge.
== END 2020-11-24 19:52 | disposition home or self-care (01) ==
LOC: ED 19:09
DX: U07.1 COVID-19 (principal); J12.82 Pneumonia due to coronavirus disease 2019; I26.99 Other pulmonary embolism without acute cor pulmonale; R06.02 Shortness of breath; I10 Essential (primary) hypertension; J44.9 Chronic obstructive pulmonary disease, unspecified; Z86.718 Personal history of other venous thrombosis and embolism
CPT/HCPCS: 36415; 71045; 80053; 85025; 93005; 99285